=== PATIENT | male | born 1940 | race Caucasian/White ===

== ENCOUNTER 2018-09-03 15:33 | Emergency (ER) | payer MEDICARE ==
[2018-09-03] MEDS ORDERED: Sulfameth/Trimethoprim DS 800-160mg TAB ONE (15:51)
== END 2018-09-03 15:55 | disposition home or self-care (01) ==
LOC: SCSER 15:33
DX: L03.113 Cellulitis of right upper limb (principal); I10 Essential (primary) hypertension; E78.5 Hyperlipidemia, unspecified; Z79.82 Long term (current) use of aspirin; Z79.899 Other long term (current) drug therapy
CPT/HCPCS: 99282